=== PATIENT | male | born 1995 | race American Indian/Alaskan Native ===

== ENCOUNTER 2017-03-19 10:47 | Emergency (ER) | payer OTHER ==
[2017-03-19 11:02] VITALS: BP 117/69
--- NOTE | 2017-03-19 11:14 | Emergency Department Report ---
Chief Complaint: Abdominal Pain Stated Complaint: ABDOMINAL PAIN - HPI History of Present Illness: This is a 21-year-old male nontoxic, well nourished in appearance, no acute signs of distress presents to the ED with c/o of lower abdominal pain 2 days. Patient describes it as sharp. Denies any nausea or vomiting. Patient said he has also had diarrhea. Denies any sick contacts. Denies any fever, chills, nausea, vomiting, chest pain, short of breath, back pain. - Exam Vital Signs: Vital Signs 03/19/17 11:00 Temperature 98.3 F Pulse Rate 68 Respiratory 18 Rate Blood Pressure 117/69 O2 Sat by Pulse 100 Oximetry Physical Exam: GENERAL: The patient is a well-developed, well-nourished female in no apparent distress. Patient is alert and acting appropriately for age. Alert and oriented 3, no apparent distress, normal gait, atraumatic. ABDOMEN: Soft, nontender, and nondistended. Slight tenderness generalized. Positive bowel sounds. No hepatosplenomegaly was noted. No guarding or rebound tenderness, negative epigastric bruit. Negative psoas sign, negative coelho sign , negative McBurneys sign MSE screening note: Focused history and physical exam performed. Due to findings the following was ordered: 1- This initial assessment/diagnostic orders/clinical plan/ treatment(s) is/are subject to change based on pt's health status, clinical progression and re- assessment by fellow clinical providers in the ED. Further treatment and workup at subsequent clinical provers discretion. Patient/guardians urged not to elope from ED as their condition may be serious if not clinically assessed and managed. 2-CBC, CMP, lipase, amylase, UA ED Disposition for MSE Condition: Stable
[2017-03-19 12:17] LABS: Basophils % (Auto) 0.5 % (0.0-1.8); Hematocrit 45.4 % (35.5-45.6); Hemoglobin 14.7 gm/dl (11.8-15.2); Mean Corpuscular HGB Conc 32 % (32-34); Mean Corpuscular Hemoglobin 31 pg (28-32); Mean Corpuscular Volume 96 fl (84-94); Platelet Count 312 K/mm3 (140-440); Red Blood Count 4.75 M/mm3 (3.65-5.03); Red Cell Distribution Width 13.4 % (13.2-15.2); White Blood Count 5.2 K/mm3 (4.5-11.0)
[2017-03-19 12:32] LABS: Alanine Aminotransferase 12 units/L (7-56); Albumin 3.8 g/dL (3.9-5); Albumin/Globulin Ratio 1.3 %; Alkaline Phosphatase 63 units/L (35-129); Amylase 109 units/L (27-131); Anion Gap 16 mmol/L; BUN/Creatinine Ratio 11; Blood Urea Nitrogen 8 mg/dL (9-20); Calcium 8.6 mg/dL (8.4-10.2); Carbon Dioxide 26 mmol/L (22-30); Chloride 102.6 mmol/L (98-107); Glucose 114 mg/dL (75-100); Lipase 17 units/L (13-60); Potassium 3.8 mmol/L (3.6-5.0); Sodium 141 mmol/L (137-145); Total Protein 6.7 g/dL (6.3-8.2)
[2017-03-19 12:53] LABS: Bilirubin,Urine NEG (Negative); Blood,Urine NEG (Negative); Ketones,Urine NEG (Negative); Leukocyte Esterase,Urine NEG (Negative); Mucus,Urine 1+ /HPF; Nitrite,Urine NEG (Negative); Protein,Urine <15 mg/dL mg/dL (Negative)
== END 2017-03-19 12:25 | disposition left against medical advice (07) ==
LOC: ED 10:47
DX: R10.9 Unspecified abdominal pain (principal); Z53.21 Procedure and treatment not carried out due to patient leaving prior to being seen by health care provider
CPT/HCPCS: 36415; 80053; 81001; 82150; 83690; 85025

== ENCOUNTER 2017-05-30 08:38 | Emergency (ER) | payer SELFPAY | END 2017-05-30 09:20 | disposition left against medical advice (07) | LOC: ED 08:38 | DX: R10.9 Unspecified abdominal pain (principal); Z53.21 Procedure and treatment not carried out due to patient leaving prior to being seen by health care provider ==

== ENCOUNTER 2019-12-20 08:03 | Emergency (ER) | payer SELFPAY ==
[2019-12-20] MEDS ORDERED: IBUPROFEN 800 MG TAB PO ONE (09:27)
--- NOTE | 2019-12-20 10:04 | XRay Report ---
. LEFT HAND 3 VIEW(S) INDICATION / CLINICAL INFORMATION: left thumb injury/swelling COMPARISON: None available. FINDINGS: BONES / JOINT(S): No acute fracture or subluxation. No significant arthritis. SOFT TISSUES: No significant abnormality. ADDITIONAL FINDINGS: None. Signer Name: Cr Liao MD Signed: 12/20/2019 9:59 AM Workstation Name: [id number]
[2019-12-20 10:21] VITALS: BP 117/59
--- NOTE | 2019-12-20 10:27 | Emergency Department Report ---
ED Upper Extremity Inj HPI - General Chief Complaint: Extremity Injury, Upper Stated Complaint: FINGER POSS BROKEN Time Seen by Provider: 12/20/19 09:19 Source: patient Mode of arrival: Ambulatory Limitations: No Limitations - History of Present Illness Initial Comments: This is a 24-year-old male nontoxic, well nourished in appearance, no acute signs of distress presents to the ED with c/o of left thumb pain 1 day. Patient stated that he was playing basketball and injured finger. Patient denies any other trauma. Patient denies any numbness, tingling, fever, chills, nausea, vomiting, chest pain, shortness of breath, headache, stiff neck. Patient denies any joint swelling or joint redness. Patient denies any allergies or significant past medical history. MD Complaint: Injury to:: left, finger -: days(s) Other Extremity Injury: Fingers: Left Other Injuries: none Place: outdoors Severity scale (0 -10): 8 Improves With: immobilization Worsens With: movement of extremity Associated Symptoms: denies other symptoms. denies: weakness, numbness, neck pain, suspects foreign body, nausea/vomiting, heard/felt popping sensat - Related Data Previous Rx's Medication Instructions Recorded Last Taken Type Naproxen 500 mg PO Q12H PRN #12 tablet 12/20/19 Unknown Rx Allergies Allergy/AdvReac Type Severity Reaction Status Date / Time No Known Allergies Allergy Unverified 03/19/17 11:00 ED Review of Systems ROS: Stated complaint: FINGER POSS BROKEN Other details as noted in HPI Constitutional: denies: chills, fever Eyes: denies: eye pain, eye discharge, vision change ENT: denies: ear pain, throat pain Respiratory: denies: cough, shortness of breath, wheezing Cardiovascular: denies: chest pain, palpitations Endocrine: no symptoms reported Gastrointestinal: denies: abdominal pain, nausea, diarrhea Genitourinary: denies: urgency, dysuria Musculoskeletal: denies: back pain, joint swelling, arthralgia Skin: denies: rash, lesions Neurological: denies: headache, weakness, paresthesias Psychiatric: denies: anxiety, depression Hematological/Lymphatic: denies: easy bleeding, easy bruising ED Past Medical Hx - Past Medical History Previous Medical History?: No - Surgical History Past Surgical History?: No - Social History Smoking Status: Current Every Day Smoker Substance Use Type: Alcohol - Medications Home Medications: Home Medications Medication Instructions Recorded Confirmed Last Taken Type Naproxen 500 mg PO Q12H PRN #12 tablet 12/20/19 Unknown Rx ED Physical Exam - General Limitations: No Limitations General appearance: alert, in no apparent distress - Head Head exam: Present: atraumatic, normocephalic - Neck Neck exam: Present: normal inspection, full ROM - Respiratory Respiratory exam: Absent: respiratory distress - Cardiovascular Cardiovascular Exam: Present: regular rate - Extremities Exam Extremities exam: Present: normal inspection, full ROM, tenderness, normal capillary refill. Absent: joint swelling - Expanded Upper Extremity Exam Left General: Present: normal inspection Shoulder Exam: Present: normal inspection, full ROM. Absent: tenderness, swelling Upper Arm exam: Present: normal inspection, full ROM. Absent: tenderness, swelling Elbow exam: Present: normal inspection, full ROM. Absent: tenderness, swelling Forearm Wrist exam: Present: normal inspection, full ROM. Absent: tenderness, swelling, abrasion, laceration, ecchymosis, deformity, crepidus, dislocation, erythema, tenderness over anatomical snuff box, pain with axial thumb loading Hand Wrist exam: Present: normal inspection, full ROM, tenderness, swelling, ecchymosis. Absent: abrasion, laceration, deformity, crepidus, dislocation, erythema, amputation, nail avulsion, subungual hematoma Vascular: Present: normal capillary refill. Absent: vascular compromise (neurovascular intact) - Back Exam Back exam: Present: normal inspection, full ROM. Absent: tenderness, CVA tenderness (R), CVA tenderness (L), muscle spasm, paraspinal tenderness, vertebral tenderness, rash noted - Neurological Exam Neurological exam: Present: alert, oriented X3, normal gait - Psychiatric Psychiatric exam: Present: normal affect, normal mood - Skin Skin exam: Present: warm, dry, intact, normal color. Absent: rash ED Course Vital Signs 12/20/19 08:10 Temperature 97.7 F Pulse Rate 72 Respiratory 16 Rate Blood Pressure 117/59 O2 Sat by Pulse 100 Oximetry Vital Signs 12/20/19 08:10 Temperature 97.7 F Pulse Rate 72 Respiratory 16 Rate Blood Pressure 117/59 O2 Sat by Pulse 100 Oximetry - Reevaluation(s) Reevaluation #1: 12/20/19 10:29 Patient is speaking in full sentences with no signs of distress noted. ED Medical Decision Making - Radiology Data Referring Physician: RAJENDRA BRUNO Patient Name: GLENN PIEDRA Date of : 1995 Sex: Male Report Date: 2019-12-20 Report Status: Finalized [facility] [address] [place] [address] XRay Report Signed Patient: GLENN PIEDRA MR#: [id number] : 1995 Acct:[id number] Age/Sex: 24 / M ADM Date: 12/20/19 Loc: ED Attending Dr: Ordering Physician: RAJENDRA BRUNO NP Date of Service: 12/20/19 Procedure(s): XR hand 3+V LT Accession Number(s): [id number] cc: RAJENDRA BRUNO NP Fluoro Time In Minutes: . LEFT HAND 3 VIEW(S) INDICATION / CLINICAL INFORMATION: left thumb injury/swelling COMPARISON: None available. FINDINGS: BONES / JOINT(S): No acute fracture or subluxation. No significant arthritis. SOFT TISSUES: No significant abnormality. ADDITIONAL FINDINGS: None. Signer Name: Cr Liao MD Signed: 12/20/2019 9:59 AM Workstation Name: [id number] Transcribed By: Dictated By: Cr Liao MD Electronically Authenticated By: Cr Liao MD Signed Date/Time: 12/20/19958 DD/ 8 TD/TT: - Medical Decision Making This is a 24-year-old male that presents with left finger sprain. Patient is stable and was examined by me. I referred patient to an orthopedic doctor for further evaluation for possible MRI. X-ray has been obtained and dictated by the radiologist. Patient is notified of the x-ray report with noted by the patient. Patient does have normal gait with no tenderness and no joint swelling. No ecchymosis. no joint redness or swelling. Not warm to touch. No signs of cellulites present. Patient received a frog metal immobilize for pain. Patient was instructed to RICE therapy. Patient received Motrin for pain. Patient is discharged with Motrin. At time of discharge, the patient does not seem toxic or ill in appearance. No acute signs of distress noted. Patient agrees to discharge treatment plan of care. No further questions noted by the patient. Critical care attestation.: If time is entered above; I have spent that time in minutes in the direct care of this critically ill patient, excluding procedure time. ED Disposition Clinical Impression: Left thumb sprain Qualifiers: Encounter type: initial encounter Sprain of finger site: unspecified site Qualified Code(s): S63.602A - Unspecified sprain of left thumb, initial encounter Disposition: TO HOME OR SELFCARE Is pt being admited?: No Does the pt Need Aspirin: No Condition: Stable Instructions: Finger Sprain (ED), RICE Therapy (ED) Additional Instructions: Follow-up with a orthopedic doctor in 3-5 days or if symptoms worsen and continue return to emergency room as soon as possible. Prescriptions: Naproxen 500 mg PO Q12H PRN #12 tablet PRN Reason: Pain , Severe (7-10) Referrals: PRIMARY MD CHELSIE [Primary Care Provider] - 3-5 Days PABLO LUCAS MD [Staff Physician] - 3-5 Days Forms: Work/School Release Form(ED)
== END 2019-12-20 10:44 | disposition home or self-care (01) ==
LOC: ED 08:03
DX: S63.602A Unspecified sprain of left thumb, initial encounter (principal); F17.200 Nicotine dependence, unspecified, uncomplicated; X58.XXXA Exposure to other specified factors, initial encounter; Y93.89 Activity, other specified; Y92.89 Other specified places as the place of occurrence of the external cause; Y99.8 Other external cause status
CPT/HCPCS: 99283